=== PATIENT | male | born 1985 ===

== ENCOUNTER → 2017-07-28 | Outpatient (CLI) | payer SELFPAY ==
[~2017-07-28] MED LIST: ALB18R INH; ALB6.7R INH; ESCI10TA8 PO; MONT10TA PO
--- NOTE | 2017-07-28 15:31 | EKG ---
[place] [facility] [place] NAME: DALLAS MCMAHON : [id number] MR: [id number] V: [id number] EXAM DATE: ORDERING PHYSICIAN: BLAIR FARFAN TECHNOLOGIST: REGGIE Swan Reason : CHEST TIGHTNESS Blood Pressure : / mmHG Vent. Rate : 069 BPM Atrial Rate : 069 BPM P-R Int : 134 ms QRS Dur : 112 ms QT Int : 394 ms P-R-T Axes : 046 079 039 degrees QTc Int : 422 ms Normal sinus rhythm Normal ECG No previous ECGs available Referred By: Confirmed By:
== END ==
LOC: RESP 14:39
PROVIDERS: ATTEND Internal Medicine
DX: Z02.9 Encounter for administrative examinations, unspecified (principal)

== ENCOUNTER → 2017-07-29 | Outpatient (CLI) | payer OTHER ==
[2017-07-29 10:04] LABS: LDL CHOLESTEROL 176 mg/dl; PLATELET COUNT, AUTOMATED 248 K/uL (150-450)
== END ==
LOC: LAB 09:05
PROVIDERS: ATTEND Internal Medicine
DX: F41.9 Anxiety disorder, unspecified (principal); J45.909 Unspecified asthma, uncomplicated; R03.0 Elevated blood-pressure reading, without diagnosis of hypertension; R07.9 Chest pain, unspecified; E78.5 Hyperlipidemia, unspecified
CPT/HCPCS: 36415; 81001; 82040; 82247; 82310; 82374; 82435; 82465; 82565; 82947; 83718; 84075; 84132; 84155; 84295; 84443; 84450; 84460; 84478; 84520; 84550; 85025